=== PATIENT | female | born 1940 | race Caucasian/White ===

== ENCOUNTER 2018-04-21 11:08 | Outpatient (CLI) | payer MEDICARE, SELFPAY ==
[2018-04-21 11:40] LABS: Abs Immature Grans 0.01 k/cumm (0.0-0.09); Absolute Basophil Count 0.01 k/cumm (0.0-0.2); Absolute Eosinophil Count 0.04 k/cumm (0.0-0.7); Absolute Lymphocyte Count 1.74 k/cumm (1.2-3.4); Absolute Monocyte Count 0.58 k/cumm (0.11-0.7); Absolute Neutrophil Count 3.17 k/cumm (1.2-6.7); Basophils % 0.2; Eosinophils % 0.7; HGB 12.7 g/dL (12.0-15.5); Immature Grans % 0.2; Lymphocytes % 31.4; Mean Corp. HGB Concentration 33.4 g/dL (32.0-36.0); Mean Corpuscular Hemoglobin 38.1 pg (27.0-33.0); Mean Corpuscular Volume 114.1 fL (80-95); Mean Platelet Volume 8.4 fL (8.0-11.0); Monocytes % 10.5; Platelet Count 381 x1000/uL (130-400); RBC 3.33 m/cumm (4.00-5.20); White Blood Cell Count 5.55 k/cumm (4.4-10.8)
[2018-04-21 11:56] LABS: Diff Comment RBC Morph Reviewed; Macrocytosis 3+
[2018-04-21 11:58] LABS: ALT 27 U/L (12-78); AST 19 U/L (15-37); Albumin 3.8 g/dL (3.4-5.0); Alkaline Phosphatase 69 U/L (46-116); Anion Gap 8.3 mmol/L (3-11); BUN 29 mg/dL (7-18); Bilirubin, Total 0.5 mg/dL (0.2-1.0); CO2 23.7 mmol/L (21.0-32.0); CREATININE 0.84 mg/dL (0.55-1.02); Calcium 9.9 mg/dL (8.5-10.1); Chloride 102 mmol/L (98-107); Glucose 102 mg/dL (70-100); LDH 207 U/L (81-234); Potassium 4.8 mmol/L (3.5-5.1); Sodium 134 mmol/L (136-145); Total Protein 7.4 g/dL (6.4-8.2)
== END 2018-04-21 11:28 ==
PROVIDERS: PCP Neuromusculoskeletal Medicine & OMM; Visit Provider Nurse Practitioner Family
DX: D47.3 Essential (hemorrhagic) thrombocythemia (principal)
CPT/HCPCS: 36415; 80053; 83615; 85025

== ENCOUNTER 2018-10-15 10:41 | Outpatient (CLI) | payer MEDICARE, SELFPAY ==
[2018-10-15 11:16] LABS: Absolute Basophil Count 0.01 k/cumm (0.0-0.2); Absolute Eosinophil Count 0.03 k/cumm (0.0-0.7); Absolute Lymphocyte Count 1.34 k/cumm (1.2-3.4); Absolute Monocyte Count 0.43 k/cumm (0.11-0.7); Absolute Neutrophil Count 2.28 k/cumm (1.2-6.7); Basophils % 0.2; Eosinophils % 0.7; HCT 36.6 % (36.0-46.0); HGB 12.3 g/dL (12.0-15.5); Lymphocytes % 32.8; Mean Corp. HGB Concentration 33.6 g/dL (32.0-36.0); Mean Corpuscular Hemoglobin 38.6 pg (27.0-33.0); Mean Corpuscular Volume 114.7 fL (80-95); Mean Platelet Volume 8.6 fL (8.0-11.0); Monocytes % 10.5; Neutrophils % 55.8; Platelet Count 343 x1000/uL (130-400); RBC 3.19 m/cumm (4.00-5.20); RBC Distribution Width 12.7 % (11.7-14.6); White Blood Cell Count 4.09 k/cumm (4.4-10.8)
[2018-10-15 11:27] LABS: ALT 22 U/L (12-78); AST 17 U/L (15-37); Albumin 3.7 g/dL (3.4-5.0); Alkaline Phosphatase 65 U/L (46-116); Anion Gap 8.1 mmol/L (3-11); BUN 24 mg/dL (7-18); Bilirubin, Total 0.5 mg/dL (0.2-1.0); CO2 25.9 mmol/L (21.0-32.0); CREATININE 0.86 mg/dL (0.55-1.02); Calcium 9.3 mg/dL (8.5-10.1); Chloride 103 mmol/L (98-107); Glucose 100 mg/dL (70-100); LDH 193 U/L (81-234); Potassium 4.5 mmol/L (3.5-5.1); Sodium 137 mmol/L (136-145); Total Protein 7.3 g/dL (6.4-8.2)
== END 2018-10-15 11:01 ==
PROVIDERS: PCP Neuromusculoskeletal Medicine & OMM; Visit Provider Internal Medicine Hematology & Oncology
DX: D47.3 Essential (hemorrhagic) thrombocythemia (principal)
CPT/HCPCS: 36415; 80053; 83615; 85025

== ENCOUNTER 2019-05-14 11:13 | Outpatient (CLI) | payer MEDICARE, SELFPAY ==
[2019-05-14 12:21] LABS: Abs Immature Grans 0.01 k/cumm (0.0-0.09); Absolute Basophil Count 0.01 k/cumm (0.0-0.2); Absolute Eosinophil Count 0.04 k/cumm (0.0-0.7); Absolute Lymphocyte Count 1.73 k/cumm (1.2-3.4); Absolute Monocyte Count 0.48 k/cumm (0.11-0.7); Absolute Neutrophil Count 2.02 k/cumm (1.2-6.7); Basophils % 0.2; Eosinophils % 0.9; HCT 36.6 % (36.0-46.0); Immature Grans % 0.2; Lymphocytes % 40.3; Mean Corp. HGB Concentration 32.8 g/dL (32.0-36.0); Mean Corpuscular Hemoglobin 37.4 pg (27.0-33.0); Mean Platelet Volume 8.6 fL (8.0-11.0); Monocytes % 11.2; Neutrophils % 47.2; Platelet Count 498 x1000/uL (130-400); RBC 3.21 m/cumm (4.00-5.20); RBC Distribution Width 13.7 % (11.7-14.6); White Blood Cell Count 4.29 k/cumm (4.4-10.8)
[2019-05-14 12:39] LABS: ALT 28 U/L (14-59); AST 17 U/L (15-37); Albumin 3.5 g/dL (3.4-5.0); Alkaline Phosphatase 57 U/L (46-116); Anion Gap 7.5 mmol/L (3-11); BUN 33 mg/dL (7-18); Bilirubin, Total 0.3 mg/dL (0.2-1.0); CO2 24.5 mmol/L (21.0-32.0); CREATININE 0.98 mg/dL (0.55-1.02); Calcium 9.6 mg/dL (8.5-10.1); Chloride 105 mmol/L (98-107); Estimated GFR 54.61 (mL/min/1.73m2); Glucose 99 mg/dL (74-106); LDH 219 U/L (81-234); Potassium 4.9 mmol/L (3.5-5.1); Sodium 137 mmol/L (136-145); Total Protein 6.9 g/dL (6.4-8.2)
[2019-05-14 12:40] LABS: Diff Comment RBC Morph Reviewed; Macrocytosis 2+
== END 2019-05-14 11:33 ==
PROVIDERS: PCP Neuromusculoskeletal Medicine & OMM; Visit Provider Internal Medicine Hematology & Oncology
DX: D47.3 Essential (hemorrhagic) thrombocythemia (principal)
CPT/HCPCS: 36415; 80053; 83615; 85025

== ENCOUNTER 2019-07-08 11:26 | Outpatient (CLI) | payer MEDICARE, SELFPAY ==
[2019-07-08 11:50] LABS: Abs Immature Grans 0.01 k/cumm (0.0-0.09); Absolute Basophil Count 0.02 k/cumm (0.0-0.2); Absolute Eosinophil Count 0.02 k/cumm (0.0-0.7); Absolute Lymphocyte Count 1.36 k/cumm (1.2-3.4); Absolute Monocyte Count 0.65 k/cumm (0.11-0.7); Basophils % 0.4; Eosinophils % 0.4; HCT 35.6 % (36.0-46.0); HGB 11.5 g/dL (12.0-15.5); Immature Grans % 0.2 %; Lymphocytes % 25.4; Mean Corp. HGB Concentration 32.3 g/dL (32.0-36.0); Mean Corpuscular Hemoglobin 37.3 pg (27.0-33.0); Mean Corpuscular Volume 115.6 fL (80-95); Mean Platelet Volume 8.4 fL (8.0-11.0); Monocytes % 12.1; Neutrophils % 61.5; Platelet Count 407 x1000/uL (130-400); RBC 3.08 m/cumm (4.00-5.20); RBC Distribution Width 13.4 % (11.7-14.6); White Blood Cell Count 5.36 k/cumm (4.4-10.8)
[2019-07-08 12:16] LABS: Diff Comment RBC Morph Reviewed
[2019-07-08 12:17] LABS: Hypochromasia 1+; Macrocytosis 2+; Poikilocytes 1+; Polychromasia Present
[2019-07-08 12:19] LABS: ALT 22 U/L (14-59); AST 18 U/L (15-37); Albumin 3.8 g/dL (3.4-5.0); Alkaline Phosphatase 61 U/L (46-116); Anion Gap 10.2 mmol/L (3-11); BUN 30 mg/dL (7-18); Bilirubin, Total 0.5 mg/dL (0.2-1.0); CO2 24.8 mmol/L (21.0-32.0); CREATININE 1.01 mg/dL (0.55-1.02); Calcium 9.8 mg/dL (8.5-10.1); Chloride 102 mmol/L (98-107); Estimated GFR 52.74 (mL/min/1.73m2); Glucose 92 mg/dL (74-106); Potassium 4.8 mmol/L (3.5-5.1); Sodium 137 mmol/L (136-145); Total Protein 7.2 g/dL (6.4-8.2)
[2019-07-08 12:40] LABS: LDH 205 U/L (81-234)
== END 2019-07-08 11:46 ==
PROVIDERS: PCP Neuromusculoskeletal Medicine & OMM; Visit Provider Internal Medicine Hematology & Oncology
DX: D47.3 Essential (hemorrhagic) thrombocythemia (principal)
CPT/HCPCS: 36415; 80053; 83615; 85025

== ENCOUNTER 2020-04-21 02:43 | Outpatient (CLI) | payer MEDICARE, SELFPAY ==
[2020-04-21 11:06] LABS: Abs Immature Grans 0.01 10^3/uL (0.0-0.06); Absolute Basophil Count 0.02 10^3/uL (0.0-0.2); Absolute Eosinophil Count 0.04 10^3/uL (0.0-0.7); Absolute Lymphocyte Count 1.69 10^3/uL (1.2-3.4); Absolute Monocyte Count 0.54 10^3/uL (0.1-0.8); Basophils % 0.5; HCT 34.2 % (36.0-46.0); HGB 11.4 g/dL (11.2-15.7); Immature Grans % 0.2; Lymphocytes % 40.2; MCH 38.6 pg (27.0-33.0); MCHC 33.3 % (32.0-36.0); MCV 115.9 fL (80-95); MPV 8.4 fL (8.0-11.0); Monocytes % 12.9; Neutrophils % 45.2; Nucleated RBC 0 %; Platelet Count 351 10^3/uL (130-400); RBC 2.95 10^6/uL (3.93-5.22); RDW 13.2 % (11.7-14.6); RDW-SD 56.4 fL
[2020-04-21 11:19] LABS: ALT 19 U/L (14-59); AST 16 U/L (15-37); Albumin 3.6 g/dL (3.4-5.0); Alkaline Phosphatase 71 U/L (46-116); BUN 26 mg/dL (7-18); Bilirubin, Total 0.5 mg/dL (0.2-1.0); CREATININE 0.94 mg/dL (0.55-1.02); Calcium 9.5 mg/dL (8.5-10.1); Chloride 104 mmol/L (98-107); Estimated GFR 57.15 (mL/min/1.73m2); Glucose 96 mg/dL (74-106); LDH 193 U/L (81-234); Sodium 137 mmol/L (136-145); Total Protein 7.3 g/dL (6.4-8.2)
[2020-04-21 11:20] LABS: Diff Comment RBC Morph Reviewed; Macrocytosis 3+; Polychromasia Present
== END 2020-04-21 03:03 ==
PROVIDERS: PCP Neuromusculoskeletal Medicine & OMM; Visit Provider Internal Medicine Hematology & Oncology
DX: D47.3 Essential (hemorrhagic) thrombocythemia (principal)
CPT/HCPCS: 36415; 80053; 83615; 85025

== ENCOUNTER 2020-06-03 07:19 | Day surgery (SDC) | payer MEDICARE, SELFPAY ==
[2020-06-03] MEDS: Tropicam./Phenyleph. (1/2.5%) 5 ML BTL OD ×3 (07:39→07:57)
[2020-06-03 07:44] VITALS: BP 148/78; PULSE 79; RESP 16; TEMP 36.6; O2SAT 100
--- NOTE | 2020-06-03 09:08 | PDOC.DSDIS_ITS ---
Discharge Plan Disposition Patient Disposition: HOME Condition: Good Discharge Details Attending Provider: Juan Soler Primary Care Provider: Raffaele Deutsch [facility] and New Rx's Prescriptions: No Action hydroxyurea 500 mg capsule 500 mg PO DIRECTED RF: 0 meloxicam 7.5 mg tablet 7.5 mg PO DAILY RF: 0 amlodipine 10 mg tablet 10 mg PO DAILY RF: 0 triamcinolone acetonide [Nasacort] 55 mcg Aerosol,[place] 1 spray INTRANASAL DIRECTED RF: 0 ramipril 10 mg capsule 10 mg PO BID RF: 0 multivitamin [One A Day Vitamin] Tablet 1 tab PO DAILY RF: 0 glucosamine sulfate [Glucosamine] 500 mg Tablet 500 mg PO BID RF: 0 aspirin [Aspir-81] 81 mg Tablet,Delayed Release (Dr/Ec) 81 mg PO DAILY RF: 0 Discharge Instructions Stand Alone Forms: Post-op Topical Cataract, Marcel Blackwell (DSU) Discharge Orders Discharge Orders: Discharge Order (Routine); Ordered 06/03/20 Ordered By: Juan Soler DS: Diagnosis Discharge Diagnosis (1) Cortical cataract of right eye: Status: Resolved (2) Nuclear sclerotic cataract of right eye: Status: Resolved
[2020-06-03] MEDS: Balanced Salt Soln.-PLUS 500 ML BAG (09:30)
[2020-06-03] MEDS: Tetracaine 0.5% 4 ML BTL OD (09:30)
[2020-06-03] MEDS: Povidone-Iodine Ophth 30 ML BTL (09:30)
[2020-06-03] MEDS: Lidocaine 2% Jelly 6 ML SYR (09:30)
[2020-06-03] MEDS: Trypan Blue 0.06% 0.5 ML SYR (09:30)
[2020-06-03] MEDS: Lidocaine 1% Pres-Free 5 ML VIAL (09:30)
--- NOTE | 2020-06-03 09:50 | W.PM.OP ---
Date of service: 06/03/20 Time of Service: 09:50 Operative Note Operative Note PRE-OP DIAGNOSIS: Nuclear/cortical cataract, right eye; Poor red reflex secondary to cataract POST-OP DIAGNOSIS: same PROCEDURE: Cataract extraction using phacoemulsification with intraocular lens implantation, right eye, using capsular staining with Vision Blue SURGEON: Juan Soler ANESTHESIA: MAC (with local sub-tenon's anesthetic injection) PATHOLOGY: none sent COMPLICATIONS: None Patient was transported to: same day Patient's condition: stable Implants: Patrice and Patrice / [employer] Tecnis [id number] Indications: Progressive visual loss due to cataract, right eye Procedure Description: CATARACT SURGERY OPERATIVE REPORT PREOPERATIVE DIAGNOSIS: 1. Nuclear/cortical cataract, right eye 2. Poor red reflex secondary to #1 POSTOPERATIVE DIAGNOSIS: Same OPERATION: 1. Cataract extraction using phacoemulsification with posterior chamber intraocular lens implant, right eye. 2. Capsular staining with Vision Blue IOL: IOL Cost Report Clerk/Model: Patrice & Patrice / BENEDICTO Tecnis [id number] IOL Power: + 14.50 diopters IOL Serial Number: [id number] Optic Diameter: 6.0mm Haptic/Overall Diameter: 13.0mm PHACO INFO: Azeem Un[employer] Softwareurion Vision System with OZil and Active Fluidics Cumulative Dispersed Energy (CDE): 10.01 seconds SURGEON: Juan Soler MD, WENCESLAO ANESTHESIA: Monitored Anesthesia Care (MAC), with local sub-tenon's anesthetic infiltration COMPLICATIONS: None SPECIMENS: None INDICATIONS FOR PROCEDURE: The patient is an 80-year-old lady with history of diminished visual acuity in her right eye secondary to development of significant nuclear cortical cataract. She also has a history of myopia. The option of cataract surgery was offered to the patient and she wished to proceed. PROCEDURE: The correct surgical eye was identified and marked as the right eye and the pupil was dilated in the preoperative area using mydriatics and cycloplegics. The dilated pupil size was 7.5 mm. Oral sedation was administered in the form of an Imprimis MKO Melt (midazolam 3mg/ketamine 25mg/ondansetron 2mg). The patient was brought to the operating room where cardiopulmonary monitoring was instituted and surgical time-out was performed, confirming the correct operative eye and IOL power. Topical anesthesia was administered and ophthalmic povidone-iodine 5% was instilled into the conjunctival fornices. Lidocaine gel was applied to the cornea and the erica-ocular area was prepped with Betadine 10% solution and draped in the usual sterile fashion for intraocular surgery, including an aperture drape. A Tegaderm transparent film dressing was cut in half and used to cover the lashes and lid margins. Care was taken to sequester the lashes and lid margins under the Tegaderm dressing. A lid speculum was placed between the lids of the operative eye and the Luda-Rajan operating microscope was maneuvered into position. Yari scissors were then used to make a conjunctival buttonhole approximately 6mm posterior to the limbus in the inferonasal quadrant. Blunt dissection was carried out to expose bare sclera, and a blunt-tipped sub-tenon?s anesthesia cannula was introduced and passed posteriorly along the globe where non-preserved plain lidocaine was injected into posterior sub-Tenon?s space. A sideport knife was used to make a paracentesis port inferotemporally. Intraocular phenylephrine/lidocaine was injected into the anterior chamber. Air was injected into the anterior chamber, followed by Vision Blue, which was painted over the anterior capsule and then irrigated out with BSS. The anterior chamber was filled with viscoelastic. A 2.4mm keratome knife was used to create a half-thickness groove at the limbus and then to construct a three-plane near-clear corneal tunnel extending 2.0mm into clear cornea superiortemporally. A flap was raised on the anterior capsule and capsulorhexis forceps were used to complete a continuous curvilinear capsulorhexis of 5.0 mm. Balanced salt solution was then used to perform cortical cleaving hydrodissection and nuclear hydrodelineation until the lens could be freely rotated within the capsular bag. The lens nucleus was then disassembled and removed within the capsular bag and iris plane using phacoemulsification. Residual cortical material was removed using the I/A handpiece. The posterior capsule was carefully polished to remove as much residual lens epithelial cells as safely possible. The capsular bag was then inflated and the anterior chamber deepened with viscoelastic. The lens implant described above was inserted into the capsular bag using the BENEDICTO [place] Injector. A Kuglen hook was used to dial the IOL into position. Residual viscoelastic was then removed first from posterior to the IOL, then from the anterior chamber using the I/A handpiece. The lens implant was noted to center nicely within the capsular bag. The incisions were stromally hydrated, and the anterior chamber was reformed using BSS. Then 0.1cc of moxifloxacin 5.0mg/ml were injected into the capsular bag and anterior chamber. The incisions were checked with a Weck spear and found to be secure. Several drops of ophthalmic povidone-iodine 5% were then applied to the eye followed by two drops of Imprimis combination prednisolone/moxifloxacin/nepafenac solution. The drapes were removed and a clear plastic protective eye shield was placed over the eye. The patient was then returned to [facility] Day Surgery in stable condition.
[2020-06-03 10:10] VITALS: BP 138/74; PULSE 72; RESP 18; TEMP 36.5; O2SAT 96
== END 2020-06-03 10:25 | disposition home or self-care (01) ==
PROVIDERS: PCP Neuromusculoskeletal Medicine & OMM; Visit Provider Ophthalmology
PROC: (CPT 66982; principal; 2020-06-03 09:00)
DX: H25.011 Cortical age-related cataract, right eye (principal); H25.11 Age-related nuclear cataract, right eye; H35.89 Other specified retinal disorders; H52.11 Myopia, right eye; I10 Essential (primary) hypertension
CPT/HCPCS: 66982; V2632

== ENCOUNTER 2020-06-13 06:51 | Day surgery (SDC) | payer MEDICARE, SELFPAY ==
[2020-06-13 07:00] VITALS: BP 140/74; PULSE 81; RESP 18; TEMP 36.2; O2SAT 99
[2020-06-13] MEDS: Tropicam./Phenyleph. (1/2.5%) 5 ML BTL OS ×3 (07:17→07:27)
[2020-06-13] MEDS: Tetracaine 0.5% 4 ML BTL OS (08:16)
[2020-06-13] MEDS: Lidocaine 2% Jelly 6 ML SYR (08:17)
[2020-06-13] MEDS: Povidone-Iodine Ophth 30 ML BTL (08:17)
[2020-06-13] MEDS: Lidocaine 1% Pres-Free 5 ML VIAL (08:22)
[2020-06-13] MEDS: Balanced Salt Soln.-PLUS 500 ML BAG (08:26)
--- NOTE | 2020-06-13 08:43 | PDOC.DSDIS_ITS ---
Discharge Plan Disposition Patient Disposition: HOME Condition: Good Discharge Details Attending Provider: Juan Soler Primary Care Provider: Raffaele Deutsch [facility] and New Rx's Prescriptions: No Action hydroxyurea 500 mg capsule 500 mg PO DIRECTED RF: 0 meloxicam 7.5 mg tablet 7.5 mg PO DAILY RF: 0 amlodipine 10 mg tablet 10 mg PO DAILY RF: 0 triamcinolone acetonide [Nasacort] 55 mcg Aerosol,[place] 1 spray INTRANASAL DIRECTED RF: 0 ramipril 10 mg capsule 10 mg PO BID RF: 0 multivitamin [One A Day Vitamin] Tablet 1 tab PO DAILY RF: 0 glucosamine sulfate [Glucosamine] 500 mg Tablet 500 mg PO BID RF: 0 aspirin [Aspir-81] 81 mg Tablet,Delayed Release (Dr/Ec) 81 mg PO DAILY RF: 0 Discharge Instructions Stand Alone Forms: Post-op Block Cataract, Post-op Topical Cataract, Press Ganey (DSU) Discharge Orders Discharge Orders: Discharge Order (Routine); Ordered 06/13/20 Ordered By: Juan Soler DS: Diagnosis Discharge Diagnosis (1) Nuclear sclerotic cataract of left eye: Status: Resolved (2) Cortical cataract of left eye: Status: Resolved
--- NOTE | 2020-06-13 08:44 | ROE_ITS ---
Date of service: 06/13/20 Time of Service: 08:44 Operative Note Operative Note DATE OF PROCEDURE: 06/13/20 PRE-OP DIAGNOSIS: Nuclear/cortical cataract, left eye POST-OP DIAGNOSIS: same PROCEDURE: Cataract extraction using phacoemulsification with intraocular lens implant, left eye SURGEON: Juan Soler ANESTHESIA: MAC and local (sub-tenon's anesthetic infiltration) PATHOLOGY: none sent COMPLICATIONS: None Patient was transported to: same day Patient's condition: stable Implants: Patrice and Patrice Vision / [employer] Tecnis [id number] Indications: Progressive decreased vision due to cataract, left eye Procedure Description: CATARACT SURGERY OPERATIVE REPORT PREOPERATIVE DIAGNOSIS: Nuclear/cortical cataract, left eye POSTOPERATIVE DIAGNOSIS: Same OPERATION: Cataract extraction using phacoemulsification with posterior chamber intraocular lens implant, left eye. IOL: IOL Rerolling Machine Operator/Model: [employer] Vision / BENEDICTO Tecnis [id number] IOL Power: + 14.0 Diopters IOL Serial Number: [id number] Optic Diameter: 6.0mm Haptic/Overall Diameter: 13.0mm PHACO INFO: [employer]em [employer]ion Vision System with OZil and Active Fluidics Cumulative Dispersed Energy (CDE): 6.04 seconds SURGEON: Juan Soler MD, WENCESLAO ANESTHESIA: Monitored Anesthesia Care (MAC), with local sub-tenon's anesthetic infiltration COMPLICATIONS: None SPECIMENS: None INDICATIONS FOR PROCEDURE: The patient is an 80-year-old lady with history of myopia who has developed significant bilateral nuclear and cortical cataract. She has already undergone cataract surgery in her right eye and is doing well postoperatively. She now presents for cataract surgery in the left eye. PROCEDURE: The correct surgical eye was identified and marked as the left eye and the pupil was dilated in the preoperative area using mydriatics and cycloplegics. The dilated pupil size was 7.5 mm. Oral sedation was administered in the form of an Imprimis MKO Melt (midazolam 3mg/ketamine 25mg/ondansetron 2mg). The patient was brought to the operating room where cardiopulmonary monitoring was instituted and surgical time-out was performed, confirming the correct operative eye and IOL power. Topical anesthesia was administered and ophthalmic povidone-iodine 5% was instilled into the conjunctival fornices. Lidocaine gel was applied to the cornea and the erica-ocular area was prepped with Betadine 10% solution and draped in the usual sterile fashion for intraocular surgery, including an aperture drape. A Tegaderm transparent film dressing was cut in half and used to cover the lashes and lid margins. Care was taken to sequester the lashes and lid margins under the Tegaderm dressing. A lid speculum was placed between the lids of the operative eye and the Luda-Rajan operating microscope was maneuvered into position. Yari scissors were then used to make a conjunctival buttonhole approximately 6mm posterior to the limbus in the inferonasal quadrant. Blunt dissection was carried out to expose bare sclera, and a blunt-tipped sub-tenon?s anesthesia cannula was introduced and passed posteriorly along the globe where non- preserved plain lidocaine was injected into posterior sub-Tenon?s space. A sideport knife was used to make a paracentesis port superior/superiortemporally. Intraocular phenylephrine/lidocaine was injected into the anterior chamber. The anterior chamber was then filled with viscoelastic. A 2.4mm keratome knife was used to create a half-thickness groove at the limbus and then to construct a three-plane near-clear corneal tunnel extending 2.0mm into clear cornea in the temporal position. . A flap was raised on the anterior capsule and capsulorhexis forceps were used to complete a continuous curvilinear capsulorhexis of 5.0 mm. The anterior capsule was noted to be quite thin with a deep anterior chamber and low scleral rigidity. Balanced salt solution was then used to perform cortical cleaving hydrodissection and nuclear hydrodelineation until the lens could be freely rotated within the capsular bag. The lens nucleus was then disassembled and removed within the capsular bag and iris plane using phacoemulsification. Residual cortical material was removed using the 45-degree angled silicone I/A tip with 0.3mm port. The posterior capsule was carefully polished to remove as much residual lens epithelial cells as safely possible. The capsular bag was then inflated and the anterior chamber deepened with viscoelastic. The lens implant described above was inserted into the capsular bag using the BENEDICTO [place] Injector. A Kuglen hook was used to dial the IOL into position. A subconjunctival hemorrhage just temporal to the main phaco incision started during injection of the IOL. Residual viscoelastic was then removed first from posterior to the IOL, then from the anterior chamber using the I/A handpiece. The lens implant was noted to center nicely within the capsular bag. The incisions were stromally hydrated, and the anterior chamber was reformed using BSS. Then 0.5cc of moxifloxacin 1.0mg/ml were injected into the capsular bag and anterior chamber. The incisions were checked with a Weck spear and found to be secure. Several drops of ophthalmic povidone-iodine 5% were then applied to the eye followed by two drops of Imprimis combination prednisolone/moxifloxacin/nepafenac solution. The drapes were removed and a clear plastic protective eye shield was placed over the eye. The patient was then returned to Same Day Surgery in stable condition.
[2020-06-13 09:10] VITALS: BP 132/66; PULSE 78; RESP 17; TEMP 36.4; O2SAT 100
== END 2020-06-13 09:20 | disposition home or self-care (01) ==
PROVIDERS: PCP Neuromusculoskeletal Medicine & OMM; Visit Provider Ophthalmology
PROC: (CPT 66984; principal; 2020-06-13 08:15)
DX: H25.12 Age-related nuclear cataract, left eye (principal); H25.012 Cortical age-related cataract, left eye; Z98.41 Cataract extraction status, right eye; Z96.1 Presence of intraocular lens; I10 Essential (primary) hypertension
CPT/HCPCS: 66984; V2632

== ENCOUNTER 2020-11-03 09:15 | Outpatient (CLI) | payer MEDICARE, SELFPAY ==
[2020-11-03 11:03] LABS: Absolute Basophil Count 0.03 10^3/uL (0.0-0.2); Absolute Eosinophil Count 0.07 10^3/uL (0.0-0.7); Absolute Lymphocyte Count 1.82 10^3/uL (1.2-3.4); Absolute Monocyte Count 0.62 10^3/uL (0.1-0.8); Absolute Neutrophil Count 2.44 10^3/uL (1.2-6.7); Basophils % 0.6; Eosinophils % 1.4; HCT 35.1 % (36.0-46.0); HGB 11.7 g/dL (11.2-15.7); Lymphocytes % 36.5; MCH 38.9 pg (27.0-33.0); MCHC 33.3 % (32.0-36.0); MCV 116.6 fL (80-95); MPV 8.6 fL (8.0-11.0); Monocytes % 12.4; Neutrophils % 49.1; Nucleated RBC 0 %; Platelet Count 370 10^3/uL (130-400); RBC 3.01 10^6/uL (3.93-5.22); RDW 13.3 % (11.7-14.6); RDW-SD 57.6 fL; WBC 4.98 10^3/uL (4.4-10.8)
[2020-11-03 11:14] LABS: ALT 23 U/L (14-59); AST 20 U/L (15-37); Albumin 3.7 g/dL (3.4-5.0); Alkaline Phosphatase 69 U/L (46-116); Anion Gap 6.6 mmol/L (3-11); BUN 25 mg/dL (7-18); Bilirubin, Total 0.6 mg/dL (0.2-1.0); CO2 27.4 mmol/L (21.0-32.0); Calcium 9.5 mg/dL (8.5-10.1); Chloride 104 mmol/L (98-107); Estimated GFR 53.21 (mL/min/1.73m2); Glucose 93 mg/dL (74-106); LDH 241 U/L (81-234); Potassium 4.4 mmol/L (3.5-5.1); Sodium 138 mmol/L (136-145); Total Protein 7.4 g/dL (6.4-8.2)
== END 2020-11-03 09:16 | disposition home or self-care (01) ==
LOC: LBO 09:20
PROVIDERS: PCP Neuromusculoskeletal Medicine & OMM; Visit Provider Internal Medicine Hematology & Oncology
DX: D47.3 Essential (hemorrhagic) thrombocythemia (principal)
CPT/HCPCS: 36415; 80053; 83615; 85025

== ENCOUNTER 2021-03-28 03:51 | Outpatient (CLI) | payer MEDICARE, SELFPAY ==
[2021-03-28 13:18] LABS: ALT 26 U/L (14-59); AST 22 U/L (15-37); Abs Immature Grans 0.01 10^3/uL (0.0-0.06); Absolute Basophil Count 0.02 10^3/uL (0.0-0.2); Absolute Eosinophil Count 0.03 10^3/uL (0.0-0.7); Absolute Lymphocyte Count 1.59 10^3/uL (1.2-3.4); Absolute Monocyte Count 0.51 10^3/uL (0.1-0.8); Absolute Neutrophil Count 2.32 10^3/uL (1.2-6.7); Albumin 3.7 g/dL (3.4-5.0); Alkaline Phosphatase 65 U/L (46-116); Anion Gap 5.1 mmol/L (3-11); BUN 27 mg/dL (7-18); Basophils % 0.4; Bilirubin, Total 0.4 mg/dL (0.2-1.0); CO2 29.9 mmol/L (21.0-32.0); CREATININE 1.1 mg/dL (0.55-1.02); Calcium 9.3 mg/dL (8.5-10.1); Chloride 105 mmol/L (98-107); Eosinophils % 0.7; Estimated GFR 47.55 (mL/min/1.73m2); Glucose 134 mg/dL (74-106); HCT 34.5 % (36.0-46.0); HGB 11.5 g/dL (11.2-15.7); Immature Grans % 0.2; Lymphocytes % 35.5; MCH 38.1 pg (27.0-33.0); MCHC 33.3 % (32.0-36.0); MCV 114.2 fL (80-95); MPV 8.9 fL (8.0-11.0); Monocytes % 11.4; Neutrophils % 51.8; Nucleated RBC 0 %; Platelet Count 470 10^3/uL (130-400); Potassium 4.4 mmol/L (3.5-5.1); RBC 3.02 10^6/uL (3.93-5.22); RDW 12.9 % (11.7-14.6); RDW-SD 53.8 fL; Sodium 140 mmol/L (136-145); Total Protein 7.3 g/dL (6.4-8.2); WBC 4.48 10^3/uL (4.4-10.8)
== END 2021-03-28 03:52 | disposition home or self-care (01) ==
LOC: LBO 03:51
PROVIDERS: PCP Neuromusculoskeletal Medicine & OMM; Visit Provider Internal Medicine Hematology & Oncology
DX: D47.3 Essential (hemorrhagic) thrombocythemia (principal)
CPT/HCPCS: 36415; 80053; 85025

== ENCOUNTER 2021-07-25 02:21 | Outpatient (CLI) | payer MEDICARE, SELFPAY ==
[2021-07-25 12:20] LABS: Abs Immature Grans 0.01 10^3/uL (0.0-0.06); Absolute Basophil Count 0.02 10^3/uL (0.0-0.2); Absolute Eosinophil Count 0.03 10^3/uL (0.0-0.7); Absolute Monocyte Count 0.46 10^3/uL (0.1-0.8); Absolute Neutrophil Count 2.62 10^3/uL (1.2-6.7); Basophils % 0.4; Eosinophils % 0.6; HCT 37.5 % (36.0-46.0); HGB 12.2 g/dL (11.2-15.7); Immature Grans % 0.2; Lymphocytes % 32.3; MCH 38.1 pg (27.0-33.0); MCHC 32.5 % (32.0-36.0); MCV 117.2 fL (80-95); MPV 8.6 fL (8.0-11.0); Monocytes % 9.9; Neutrophils % 56.6; Nucleated RBC 0 %; Platelet Count 384 10^3/uL (130-400); RDW-SD 56.4 fL; WBC 4.64 10^3/uL (4.4-10.8)
== END 2021-07-25 02:22 | disposition home or self-care (01) ==
LOC: LBO 02:21
PROVIDERS: PCP Neuromusculoskeletal Medicine & OMM; Visit Provider Internal Medicine Hematology & Oncology
DX: D47.3 Essential (hemorrhagic) thrombocythemia (principal)
CPT/HCPCS: 36415; 85025

== ENCOUNTER 2021-10-09 09:07 | Outpatient (CLI) | payer MEDICARE, SELFPAY ==
[2021-10-09 15:39] LABS: Abs Immature Grans 0.01 10^3/uL (0.0-0.06); Absolute Basophil Count 0.02 10^3/uL (0.0-0.2); Absolute Eosinophil Count 0.04 10^3/uL (0.0-0.7); Absolute Lymphocyte Count 1.48 10^3/uL (1.2-3.4); Basophils % 0.5; Eosinophils % 0.9; HCT 35.5 % (36.0-46.0); HGB 11.7 g/dL (11.2-15.7); Immature Grans % 0.2; MCH 37.9 pg (27.0-33.0); MCV 114.9 fL (80-95); MPV 8.8 fL (8.0-11.0); Monocytes % 11.5; Neutrophils % 52.9; Platelet Count 359 10^3/uL (130-400); RBC 3.09 10^6/uL (3.93-5.22); RDW 13.4 % (11.7-14.6); RDW-SD 56.9 fL; WBC 4.35 10^3/uL (4.4-10.8)
[2021-10-09 15:55] LABS: ALT 25 U/L (14-59); AST 19 U/L (15-37); Albumin 3.7 g/dL (3.4-5.0); Alkaline Phosphatase 74 U/L (46-116); Anion Gap 7.2 mmol/L (3-11); BUN 37 mg/dL (7-18); Bilirubin, Total 0.4 mg/dL (0.2-1.0); CO2 25.8 mmol/L (21.0-32.0); CREATININE 1.1 mg/dL (0.55-1.02); Calcium 9.1 mg/dL (8.5-10.1); Chloride 105 mmol/L (98-107); Estimated GFR 47.55 (mL/min/1.73m2); Glucose 113 mg/dL (74-106); Potassium 4.9 mmol/L (3.5-5.1); Sodium 138 mmol/L (136-145); Total Protein 7.4 g/dL (6.4-8.2)
[2021-10-09 16:20] LABS: Diff Comment Agrees w/ Instrument
[2021-10-09 16:21] LABS: Anisocytosis 1+; Macrocytosis 2+
== END 2021-10-09 09:08 | disposition home or self-care (01) ==
PROVIDERS: PCP Neuromusculoskeletal Medicine & OMM; Visit Provider Internal Medicine Hematology & Oncology
DX: D47.3 Essential (hemorrhagic) thrombocythemia (principal)
CPT/HCPCS: 36415; 80053; 85025

== ENCOUNTER 2022-04-19 04:02 | Outpatient (CLI) | payer MEDICARE, SELFPAY ==
[2022-04-19 11:54] LABS: Absolute Basophil Count 0.03 10^3/uL (0.0-0.2); Absolute Eosinophil Count 0.02 10^3/uL (0.0-0.7); Absolute Lymphocyte Count 1.57 10^3/uL (1.2-3.4); Absolute Neutrophil Count 1.89 10^3/uL (1.2-6.7); Basophils % 0.8; Eosinophils % 0.5; HCT 34.6 % (36.0-46.0); HGB 11.5 g/dL (11.2-15.7); Lymphocytes % 40.2; MCHC 33.2 % (32.0-36.0); MCV 117 fL (80-95); MPV 9.2 fL (8.0-11.0); Monocytes % 10.2; Neutrophils % 48.3; Platelet Count 257 10^3/uL (130-400); RBC 2.95 10^6/uL (3.93-5.22); RDW 13.4 % (11.7-14.6); RDW-SD 58.3 fL; WBC 3.91 10^3/uL (4.4-10.8)
[2022-04-19 12:03] LABS: Macrocytosis 2+
[2022-04-19 12:09] LABS: ALT 21 U/L (14-59); AST 18 U/L (15-37); Albumin 3.7 g/dL (3.4-5.0); Alkaline Phosphatase 75 U/L (46-116); Anion Gap 6.8 mmol/L (3-11); BUN 31 mg/dL (7-18); Bilirubin, Total 0.4 mg/dL (0.2-1.0); CO2 26.2 mmol/L (21.0-32.0); CREATININE 1.1 mg/dL (0.55-1.02); Calcium 9.3 mg/dL (8.5-10.1); Chloride 105 mmol/L (98-107); Estimated GFR 49.86 (mL/min/1.73m2); Glucose 126 mg/dL (74-106); Potassium 4.3 mmol/L (3.5-5.1); Sodium 138 mmol/L (136-145); Total Protein 7.3 g/dL (6.4-8.2)
== END 2022-04-19 04:03 | disposition home or self-care (01) ==
PROVIDERS: PCP Neuromusculoskeletal Medicine & OMM; Visit Provider Internal Medicine Hematology & Oncology
DX: D47.3 Essential (hemorrhagic) thrombocythemia (principal)
CPT/HCPCS: 36415; 80053; 85025

== ENCOUNTER 2022-10-10 11:29 | Outpatient (CLI) | payer MEDICARE, SELFPAY ==
[2022-10-10 11:34] LABS: Abs Immature Grans 0.01 10^3/uL (0.0-0.06); Absolute Basophil Count 0.03 10^3/uL (0.0-0.2); Absolute Eosinophil Count 0.05 10^3/uL (0.0-0.7); Absolute Lymphocyte Count 1.61 10^3/uL (1.2-3.4); Absolute Monocyte Count 0.52 10^3/uL (0.1-0.8); Absolute Neutrophil Count 2.84 10^3/uL (1.2-6.7); Basophils % 0.6; HCT 35.3 % (36.0-46.0); HGB 11.7 g/dL (11.2-15.7); Immature Grans % 0.2; Lymphocytes % 31.8; MCHC 33.1 % (32.0-36.0); MCV 115 fL (80-95); MPV 8.5 fL (8.0-11.0); Monocytes % 10.3; Neutrophils % 56.1; Platelet Count 341 10^3/uL (130-400); RBC 3.08 10^6/uL (3.93-5.22); RDW 13.5 % (11.7-14.6); RDW-SD 57.2 fL; WBC 5.06 10^3/uL (4.4-10.8)
[2022-10-10 11:56] LABS: ALT 26 U/L (14-59); AST 21 U/L (15-37); Albumin 3.6 g/dL (3.4-5.0); Alkaline Phosphatase 75 U/L (46-116); BUN 28 mg/dL (7-18); Bilirubin, Total 0.4 mg/dL (0.2-1.0); CREATININE 1.1 mg/dL (0.55-1.02); Calcium 9.3 mg/dL (8.5-10.1); Chloride 104 mmol/L (98-107); Estimated GFR 49.86 (mL/min/1.73m2); Glucose 109 mg/dL (74-106); Potassium 4.6 mmol/L (3.5-5.1); Sodium 137 mmol/L (136-145); Total Protein 7.5 g/dL (6.4-8.2)
== END 2022-10-10 11:30 | disposition home or self-care (01) ==
LOC: LBO 11:30
PROVIDERS: PCP Neuromusculoskeletal Medicine & OMM; Visit Provider Internal Medicine Hematology & Oncology
DX: D47.3 Essential (hemorrhagic) thrombocythemia (principal)
CPT/HCPCS: 36415; 80053; 85025

== ENCOUNTER 2023-04-10 04:19 | Outpatient (CLI) | payer MEDICARE, SELFPAY ==
[2023-04-10 11:13] LABS: Abs Immature Grans 0.01 10^3/uL (0.0-0.06); Absolute Basophil Count 0.03 10^3/uL (0.0-0.2); Absolute Eosinophil Count 0.07 10^3/uL (0.0-0.7); Absolute Lymphocyte Count 1.52 10^3/uL (1.2-3.4); Absolute Monocyte Count 0.42 10^3/uL (0.1-0.8); Absolute Neutrophil Count 2.07 10^3/uL (1.2-6.7); Basophils % 0.7; Eosinophils % 1.7; HCT 35.5 % (36.0-46.0); HGB 11.9 g/dL (11.2-15.7); Immature Grans % 0.2; Lymphocytes % 36.9; MCH 37.4 pg (27.0-33.0); MCHC 33.5 % (32.0-36.0); MPV 8.5 fL (8.0-11.0); Monocytes % 10.2; Neutrophils % 50.3; Platelet Count 326 10^3/uL (130-400); RBC 3.18 10^6/uL (3.93-5.22); RDW 13.8 % (11.7-14.6); WBC 4.12 10^3/uL (4.4-10.8)
[2023-04-10 11:15] LABS: MCV 112 fL (80-95)
[2023-04-10 11:33] LABS: ALT 26 U/L (14-59); AST 18 U/L (15-37); Albumin 3.6 g/dL (3.4-5.0); Alkaline Phosphatase 69 U/L (46-116); Anion Gap 8.5 mmol/L (3-11); BUN 29 mg/dL (7-18); Bilirubin, Total 0.4 mg/dL (0.2-1.0); CO2 22.5 mmol/L (21.0-32.0); Calcium 9.7 mg/dL (8.5-10.1); Chloride 104 mmol/L (98-107); Creatine Kinase 42 U/L (26-192); Estimated GFR 55.55 (mL/min/1.73m2); Glucose 110 mg/dL (74-106); Potassium 4.3 mmol/L (3.5-5.1); Sodium 135 mmol/L (136-145); Total Protein 7.4 g/dL (6.4-8.2)
[2023-04-10 14:29] LABS: ESR (LRH) 16 mm/hr
== END 2023-04-10 04:20 | disposition home or self-care (01) ==
LOC: LBO 04:20
PROVIDERS: PCP Neuromusculoskeletal Medicine & OMM; Visit Provider Internal Medicine Hematology & Oncology
DX: I10 Essential (primary) hypertension (principal); D47.3 Essential (hemorrhagic) thrombocythemia; E78.2 Mixed hyperlipidemia; M62.81 Muscle weakness (generalized); M19.90 Unspecified osteoarthritis, unspecified site
CPT/HCPCS: 36415; 80053; 82550; 85652; 85025

== ENCOUNTER 2023-10-09 04:30 | Outpatient (CLI) | payer MEDICARE, SELFPAY ==
[2023-10-09 15:10] LABS: Abs Immature Grans 0.02 10^3/uL (0.0-0.06); Absolute Basophil Count 0.02 10^3/uL (0.0-0.2); Absolute Eosinophil Count 0.05 10^3/uL (0.0-0.7); Absolute Lymphocyte Count 1.54 10^3/uL (1.2-3.4); Absolute Monocyte Count 0.59 10^3/uL (0.1-0.8); Basophils % 0.5; Eosinophils % 1.2; HCT 33.3 % (36.0-46.0); Immature Grans % 0.5; Lymphocytes % 35.6; MCH 38.9 pg (27.0-33.0); MPV 8.5 fL (8.0-11.0); Monocytes % 13.6; Neutrophils % 48.6; Platelet Count 341 10^3/uL (130-400); RBC 2.83 10^6/uL (3.93-5.22); RDW 13.9 % (11.7-14.6); RDW-SD 59.9 fL; WBC 4.33 10^3/uL (4.4-10.8)
[2023-10-09 15:15] LABS: MCV 118 fL (80-95)
[2023-10-09 15:22] LABS: ALT 22 U/L (14-59); AST 13 U/L (15-37); Albumin 3.5 g/dL (3.4-5.0); Alkaline Phosphatase 75 U/L (46-116); Anion Gap 12.6 mmol/L (3-11); BUN 32 mg/dL (7-18); Bilirubin, Total 0.2 mg/dL (0.2-1.0); CO2 24.4 mmol/L (21.0-32.0); CREATININE 1.3 mg/dL (0.55-1.02); Calcium 8.8 mg/dL (8.5-10.1); Chloride 104 mmol/L (98-107); Estimated GFR 40.55 (mL/min/1.73m2); Glucose 99 mg/dL (74-106); Potassium 5.4 mmol/L (3.5-5.1); Sodium 141 mmol/L (136-145); Total Protein 7.2 g/dL (6.4-8.2)
[2023-10-09 15:26] LABS: Diff Comment RBC Morph Reviewed; Macrocytosis 2+
== END 2023-10-09 04:31 | disposition home or self-care (01) ==
LOC: LBO 04:30
PROVIDERS: PCP Neuromusculoskeletal Medicine & OMM; Visit Provider Internal Medicine Hematology & Oncology
DX: D47.3 Essential (hemorrhagic) thrombocythemia (principal)
CPT/HCPCS: 36415; 80053; 85025

== ENCOUNTER 2024-04-03 02:38 | Outpatient (CLI) | payer MEDICARE, SELFPAY ==
[2024-04-03 11:50] LABS: Abs Immature Grans 0.01 10^3/uL (0.0-0.06); Absolute Basophil Count 0.03 10^3/uL (0.0-0.2); Absolute Eosinophil Count 0.05 10^3/uL (0.0-0.7); Absolute Lymphocyte Count 1.64 10^3/uL (1.2-3.4); Absolute Monocyte Count 0.47 10^3/uL (0.1-0.8); Absolute Neutrophil Count 2.39 10^3/uL (1.2-6.7); Basophils % 0.7 %; Eosinophils % 1.1 %; HCT 33.6 % (36.0-46.0); HGB 11.1 g/dL (11.2-15.7); Immature Grans % 0.2 %; Lymphocytes % 35.7 %; MCH 37.9 pg (27.0-33.0); MCV 115 fL (80-95); MPV 8.7 fL (8.0-11.0); Monocytes % 10.2 %; Neutrophils % 52.1 %; Platelet Count 358 10^3/uL (130-400); RBC 2.93 10^6/uL (3.93-5.22); RDW 13.8 % (11.7-14.6); RDW-SD 58.6 fL; WBC 4.59 10^3/uL (4.4-10.8)
[2024-04-03 12:13] LABS: ALT 20 U/L (14-59); AST 19 U/L (15-37); Albumin 3.5 g/dL (3.4-5.0); Alkaline Phosphatase 70 U/L (46-116); Anion Gap 7.9 mmol/L (3-11); BUN 39 mg/dL (7-18); Bilirubin, Total 0.53 mg/dL (0.2-1.0); CO2 25.1 mmol/L (21.0-32.0); CREATININE 1.3 mg/dL (0.55-1.02); Calcium 9.1 mg/dL (8.5-10.1); Chloride 106 mmol/L (98-107); Glucose 100 mg/dL (74-106); Potassium 5.7 mmol/L (3.5-5.1); Sodium 139 mmol/L (136-145); Total Protein 7.2 g/dL (6.4-8.2)
== END 2024-04-03 02:39 | disposition home or self-care (01) ==
LOC: LBO 02:39
PROVIDERS: PCP Neuromusculoskeletal Medicine & OMM; Visit Provider Internal Medicine Hematology & Oncology
DX: D47.3 Essential (hemorrhagic) thrombocythemia (principal)
CPT/HCPCS: 36415; 80053; 85025

== ENCOUNTER 2024-10-06 03:55 | Outpatient (CLI) | payer MEDICARE, SELFPAY ==
[2024-10-06 10:58] LABS: Abs Immature Grans 0.01 10^3/uL (0.0-0.06); Absolute Basophil Count 0.01 10^3/uL (0.0-0.2); Absolute Eosinophil Count 0.04 10^3/uL (0.0-0.7); Absolute Lymphocyte Count 1.46 10^3/uL (1.2-3.4); Absolute Monocyte Count 0.47 10^3/uL (0.1-0.8); Absolute Neutrophil Count 2.21 10^3/uL (1.2-6.7); Basophils % 0.2 %; HCT 36.6 % (36.0-46.0); HGB 12.1 g/dL (11.2-15.7); Immature Grans % 0.2 %; Lymphocytes % 34.8 %; MCH 38.2 pg (27.0-33.0); MCHC 33.1 % (32.0-36.0); MPV 8.1 fL (8.0-11.0); Monocytes % 11.2 %; Neutrophils % 52.6 %; Platelet Count 308 10^3/uL (130-400); RBC 3.17 10^6/uL (3.93-5.22); RDW 13.5 % (11.7-14.6); RDW-SD 58.3 fL
[2024-10-06 11:01] LABS: MCV 116 fL (80-95)
[2024-10-06 11:52] LABS: ALT 25 U/L (14-59); AST 19 U/L (15-37); Albumin 3.8 g/dL (3.4-5.0); Alkaline Phosphatase 75 U/L (46-116); Anion Gap 7.4 mmol/L (3-11); BUN 29 mg/dL (7-18); Bilirubin, Total 0.5 mg/dL (0.2-1.0); CO2 26.6 mmol/L (21.0-32.0); CREATININE 0.9 mg/dL (0.55-1.02); Calcium 9.8 mg/dL (8.5-10.1); Chloride 106 mmol/L (98-107); Estimated GFR 62.65 (mL/min/1.73m2); Glucose 96 mg/dL (74-106); Potassium 5.2 mmol/L (3.5-5.1); Sodium 140 mmol/L (136-145); Total Protein 7.3 g/dL (6.4-8.2)
== END 2024-10-06 03:56 | disposition home or self-care (01) ==
LOC: LBO 03:55
PROVIDERS: PCP Neuromusculoskeletal Medicine & OMM; Visit Provider Internal Medicine Hematology & Oncology
DX: D47.3 Essential (hemorrhagic) thrombocythemia (principal)
CPT/HCPCS: 36415; 80053; 85025

== ENCOUNTER 2025-04-13 11:07 | Outpatient (CLI) | payer MEDICARE, SELFPAY ==
[2025-04-13 11:21] LABS: Abs Immature Grans 0.04 10^3/uL (0.0-0.06); HCT 33.1 % (36.0-46.0); HGB 10.9 g/dL (11.2-15.7); Immature Grans % 0.6 %; MCH 38.8 pg (27.0-33.0); MCHC 32.9 % (32.0-36.0); MCV 118 fL (80-95); MPV 8.1 fL (8.0-11.0); Platelet Count 400 10^3/uL (130-400); RBC 2.81 10^6/uL (3.93-5.22); RDW 14.1 % (11.7-14.6); RDW-SD 61.4 fL; WBC 7.24 10^3/uL (4.4-10.8)
[2025-04-13 12:20] LABS: ALT 23 U/L (14-59); AST 15 U/L (15-37); Albumin 3.5 g/dL (3.4-5.0); Alkaline Phosphatase 57 U/L (46-116); Anion Gap 7.4 mmol/L (3-11); BUN 34 mg/dL (7-18); Bilirubin, Total 0.4 mg/dL (0.2-1.0); CO2 25.6 mmol/L (21.0-32.0); Calcium 9.2 mg/dL (8.5-10.1); Chloride 105 mmol/L (98-107); Estimated GFR 48.94 (mL/min/1.73m2); Glucose 111 mg/dL (74-106); Potassium 5.1 mmol/L (3.5-5.1); Sodium 138 mmol/L (136-145); Total Protein 6.7 g/dL (6.4-8.2)
== END 2025-04-13 11:08 | disposition home or self-care (01) ==
LOC: LBO 11:07
PROVIDERS: PCP Neuromusculoskeletal Medicine & OMM; Visit Provider Nurse Practitioner Adult Health
DX: D47.3 Essential (hemorrhagic) thrombocythemia (principal)
CPT/HCPCS: 36415; 80053; 85025